=== PATIENT | male | born 1980 | race Caucasian/White ===

== ENCOUNTER 2016-07-07 20:02 | Emergency (ER) | payer OTHER ==
[2016-07-07 20:18] VITALS: RESP 18; TEMP 98.8
[2016-07-07] MEDS ORDERED: cefTRIAXone Inj 1 GM in Lidocaine Inj 1% 2.1 ML IM ONE (20:30)
[2016-07-07] MEDS: cefTRIAXone Inj 1 GM in Lidocaine Inj 1% 2.1 ML IM ONE (20:42)
[2016-07-07] MEDS: HYDROcodone-APAP 10 MG-325 MG TABLET PO SCH (20:43)
--- NOTE | 2016-07-08 06:36 | PDOC ---
Sore Throat/Dental Pain HPI - General Chief Complaint: Nasal/Mouth Problem /Injury Stated Complaint: Left lower toothache Date Seen by Provider: 07/07/16 Time Seen by Provider: 20:15 Source: POSITIVE: Patient Exam Limitations: POSITIVE: No limitations Nurse's Notes Reviewed & Considered: Yes - History of Present Illness Initial Comments: The patient is a 35-year-old male. He presents to the emergency room complaining of pain around his left lower molars. He states he saw his dentist 2 and 4 days ago and states he had a dental procedure done to his left lower molars "to help my bite fit together better". He states that this morning he noticed the development of some pain about his left lower molars and some swelling of the gingiva in this area, around the area of his dental procedures. He called his dentist in [place] who prescribed clindamycin, 300 mg 3 times a day, and the patient has taken 2 doses of this medication. He has been taking Tylenol and ibuprofen. Location: Dental (Lower) Timing: REPORTS: Abrupt Duration: <24 hours Severity: Moderate Quality: REPORTS: "Pain" Context: REPORTS: Other (Recent dental procedure as above, left lower molars). DENIES: Foreign Body, Ingestion, Fractured Tooth Modifying Factors: worse with: Rest, Exertion, Coughing, OTC Cough Expectorant, OTC Cough Suppressant, Deep Breathing, Lying Flat, Heat, Cold, Other Associated Symptoms: REPORTS: Toothache, Facial Pain (Over the mandibular area covering his left lower molars), Jaw Pain (Pain on palpation below his left lower molar) Similar Symptoms Previously: No Recently seen/treated/hospitalized: Yes Any Prior Injuries Related to Current Complaint?: No - Patient Home Medications Home Medications: Home Medications Acetaminophen [Tylenol] 1,000 mg PO PRN PRN 07/07/16 HYDROcodone/APAP 10/325 Tab [[place] 10/325 Tab] 1 tab PO Q4H PRN #20 tab Ibuprofen 600 mg PO PRN PRN 07/07/16 - Patient Allergies Allergies/Adverse Reactions: Allergies Allergy/AdvReac Type Severity Reaction Status Date / Time No Known Allergies Allergy Verified 07/07/16 20:09 Past Medical History - heen HEENT History: Denies History Cardiovascular History: Denies History Respiratory History: Denies History Gastrointestinal History: Denies History Genitourinary History: Denies History Endocrine History: Denies History Musculoskeletal History: Denies History Neurological History: Denies History Blood Disorders: Denies History Psychiatric History: Denies History History of Sexually Transmitted Diseases: No Male Reproductive History: Denies History Cancer History: Denies History In Past Year Been Physically Harmed or Verbally Threatened: No History of MDRO: No History of Other Communicable Diseases: No Tobacco Use: Never Smoker Alcohol Use: Rarely Substance Use Type: None Previous Surgical History: No Anesthesia Reactions: No Significant Family History: No pertinent family hx Past Medical History Reviewed: Reviewed - No Changes ROS - Limitations ROS Limitations: No Limitations Constitution: REPORTS: Denies Symptoms Cardiovascular: REPORTS: Denies Cardiac Symptoms Respiratory: REPORTS: Denies Resp Symptoms Neurological: REPORTS: Denies Neuro Symptoms Gastrointestinal: REPORTS: Denies GI Symptoms Endocrine: REPORTS: Denies Symptoms Musculoskeletal: REPORTS: Denies MS Symptoms Genitourinary: REPORTS: Denies Symptoms Eyes: REPORTS: Denies Symptoms ENT: REPORTS: Denies Symptoms, Dental Pain (As above; see diagram) Skin: REPORTS: Other (Mild swelling to the left lower face over the left mandible) Lympathic: REPORTS: Denies Lympathic Symptoms Immunologic: POSITIVE: Denies Symptoms Psychiatric: POSITIVE: Denies Psych Symptoms Sore Throat/Dental Pain Exam - General Appearance General Appearance: REPORTS: Alert, Cooperative, No Acute Distress, No Evidence of Trauma - HEENT Head / Face: POSITIVE: Facial Swelling (Mild swelling of face over her left lower molars). NEGATIVE: No Facial Swelling Eyes: POSITIVE: Inspection Normal, PERRL, EOM's Intact, Eyelids Uninjured, Conjunctivae Uninjured, No Nystagmus, No Globe Trauma, Sclera Normal, Normal Corneal Inspection Ears: POSITIVE: Ears Normal Inspection, TM Normal Inspection, Auricle Normal, External Canal Normal Nose: POSITIVE: Inspection Normal, No Apparent Trauma, Nares Normal, No CSF Leak Oropharynx: POSITIVE: External Inspection Nml, Pharynx Inspect. Nml, Airway Intact, Voice Normal, Moist Mucous Membranes, No Oral Injury, Lips Normal, No Drooling, No Thrush, Normal Gag Reflex, Gum Swelling (About the first second and third left lower molars). NEGATIVE: Gums Normal, Pharyngeal Erythema, Pharyngeal Exudate, Pharyngeal Ulcerations, Pharyngeal Mass, Pharyngeal Vesicles , Increase Saliva Secretion, Poor Secretion Handling, Drooling, Decreased Gag Reflex, Absent Gag Reflex, Angioedema (facial), Angioedema (tongue), Angioedema (uvula), Angioedema (pharynx), Hoarse Voice, Muffled Voice, ETOH on Breath, Carbon Sputum, Intraoral Acuna, Dry Mucous Membranes, Mucosal Edema, Tonsillar Swelling, Tonsilar Exudate, Oral Lesions, Bleeding from Nasopharynx, Temporal Artery Tender., [place] Border, Pointing Abscess, Peritonsilar Mass, Tongue Abrasion, Tongue Laceration, Thrush, Uvular Shift, Tenderness, Ecchymosis , Other Neck: POSITIVE: Supple, Normal Inspection, Non Tender Dental: POSITIVE: Dental Tenderness - Respiratory Respiratory: REPORTS: No Respiratory Distress, Breath Sounds Normal, No Pleuritic Chest Pain, Speaks Full Sentences, No Pain on Inspiration - Cardiovascular Cardiovascular: REPORTS: Regular Rate and Rhythm, Heart Sounds Normal, Equal Pulses, Strong Pulses Peripheral Pulses: Radial (R): 2+, Radial (L): 2+ - Abdomen Abdomen: Soft: (All Quadrants), Normal Bowel Sounds: (All Quadrants), Denies Tenderness: (All Quadrants), No Splenomegaly: (All Quadrants), No Hepatomegaly: (All Quadrants), No Guarding: (All Quadrants), No Rebound: (All Quadrants), No Palpable Pulse: (All Quadrants), No Palpabale Mass: (All Quadrants), No Distention: (All Quadrants), No Rigidity: (All Quadrants) - Extremities Extremity: Non-Tender: (All Extremities), Normal ROM: (All Extremities), Normal Inspection: (All Extremities) - Skin Skin: REPORTS: Intact, Normal For Race, Warm, Dry, No Rash - Neurological / Psychological Neurological: POSITIVE: Oriented X3, 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 To follow-up with his dentist Saturday. Status: POSITIVE: Unchanged - Consult Counseled: POSITIVE: Patient, RE: DX, RE: Need for F/U Patient Care Time - Estimated PCT Patient Care Time (In Minutes): 17 Vital Signs - VS Reviewed Vital Signs Reviewed: Yes Discharge Clinical Impression: Dental abscess Discharge Disposition: Discharged to Home Condition: Stable Prescriptions / Orders: HYDROcodone/APAP 10/325 Tab [[place] 10/325 Tab] 1 tab PO Q4H PRN #20 tab PRN Reason: Pain Patient Instructions Given at Discharge: Dental Abscess (ED) Additional Instructions: Clindamycin, 300 mg 4 times daily. Hydrocodone/APAP, one every 4-6 hours as necessary for pain. Follow-up with your dentist Saturday. Return here anytime if condition worsens. Follow Up With: NONE,NONE [Primary Care Provider] - (Instructions as above. Follow-up with your dentist Saturday. Return here as necessary.)
== END 2016-07-07 20:53 | disposition home or self-care (01) ==
LOC: ER 20:02
DX: K04.7 Periapical abscess without sinus (principal)
CPT/HCPCS: 96372; 99282; J0696; J2001